=== PATIENT | male | born 1965 | race Two or more races ===

== ENCOUNTER 2020-08-18 14:33 | Emergency (ER) | payer OTHER ==
[~2020-08-18] VITALS: Ht 170.2 cm; Wt 86.2 kg
[2020-08-18 14:43] VITALS: BP 198/98
[2020-08-18] MEDS ORDERED: KETOROLAC TROMETH 60MG/2ML VIAL IM ONE (17:00)
== END 2020-08-18 17:36 | disposition home or self-care (01) ==
LOC: EDBD 14:33 → ER 14:33
DX: S39.012A Strain of muscle, fascia and tendon of lower back, initial encounter (principal); S00.81XA Abrasion of other part of head, initial encounter; V49.9XXA Car occupant (driver) (passenger) injured in unspecified traffic accident, initial encounter; Y93.89 Activity, other specified; Y92.89 Other specified places as the place of occurrence of the external cause; Y99.8 Other external cause status
CPT/HCPCS: 70450; 70486; 72100; 73590; 96372; 99285; J1885